=== PATIENT | male | born 1990 | race Caucasian/White ===

== ENCOUNTER 2020-07-28 22:55 | Emergency (ER) | payer OTHER ==
--- NOTE | 2020-07-29 00:23 | ER ---
REASON FOR EMERGENCY ROOM VISIT: Shortness of breath. HISTORY: This 29-year-old man comes in this evening after awakening with shortness of breath and what he describes as an air hunger. He felt somewhat anxious after experiencing this and set up for a while and felt some chest tightness. He states that he has been seen in the past by physician who did his DOT physical examination, at which time sleep apnea study was recommended. He was told that his BMI is greater than 40, which was the main reason for this concern, although he does report today he has had similar episodes of awakening with air hunger. The last time 3 weeks ago he woke up abruptly with some similar episode. The baby at home was crying, so he got out of bed to attend to the child and at the same time had to urgently go to the bathroom to urinate. He stood up rather quickly and he states that he felt anxious and became dizzy and had a brief syncopal episode at that time. He has had a couple smaller episodes like this prior to that, the last one being about 3 weeks ago. 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 He does not have any dyspnea on exertion. He has not had any cough, fever, or chills. He denies any sore throat or other respiratory complaints. He has not had any GI complaints at all. He denies any recent exposure to anyone with known COVID. He states that when he experiences this he gets some upper chest tightness that seems to settle after a few minutes. He states he does have quite a lot of what he calls anxiety and that he does have family history of a lot of males in the family having issues with anxiety. PAST FAMILY HISTORY: Other than that noted above, his father is alive and well, has no cardiac history. His paternal grandfather and maternal grandfather neither have no history of cardiac disease as well. His mother is 58 years old and has hypertension, but no history of cardiac disease. He does have a sister who is 26 and healthy. PAST MEDICAL HISTORY: Other than that noted above, negative. MEDICATIONS: None. ALLERGIES: NONE TO MEDICATIONS. REVIEW OF SYSTEMS: Pertinent positives and negatives as listed in the HPI. PHYSICAL EXAMINATION: GENERAL: Reveals an obese young man, who does not appear to be in any acute distress at this time. VITAL SIGNS: See EMR. He is afebrile. His O2 sats are 98% on room air. His heart rate was 84, blood pressure 176/113, O2 sats 100% on room air. HEENT: No conjunctivitis or scleral icterus. Oropharynx is normal. NECK: Supple. No JVD. Trachea is midline. No thyromegaly. CHEST: Clear to auscultation with good air exchange bilaterally and no wheezes, rhonchi, or rales. CARDIAC: Regular rate without murmur. ABDOMEN: Obese, soft, and nontender. No hepatosplenomegaly is noted. EXTREMITIES: Normal pulses. No edema. NEUROLOGIC: Cranial nerves 2 through 12 are intact. He moves all 4 extremities well. He has no sensory deficits to crude touch. IMPRESSION: 1. History consistent with possible sleep apnea. 2. Anxiety. 3. Elevated blood pressure, possibly related to #2. PLAN: I relayed to the patient that I think the recommendation for a sleep apnea study makes a lot of sense, especially with his BMI being greater than 40. We also talked about his anxiety and he elaborated some on his family history of anxiety. He thinks that has a great deal to do with it. We did get a 12-lead EKG which showed normal sinus rhythm and no acute changes. His Troponin 1 was not elevated. He will be given 1 mg of Ativan to take just prior to leaving the emergency department. He only lives 3 or 4 miles away from here, so it will not have had time to affect him assuming he drives straight home. I reassured him he seemed to be okay with this recommendation. All questions were answered and stated he will definitely take the recommendation for sleep apnea study seriously. We will arrange for this to be done. ALFRED /[id number] MATTEO
[2020-07-29] MEDS: LORazepam 1 MG Tab PO ONE (00:35)
[2020-07-29] MEDS ORDERED: LORazepam 1 MG Tab ONE (00:37)
== END 2020-07-29 00:38 | disposition home or self-care (01) ==
LOC: LB.ED 22:55
DX: F41.9 Anxiety disorder, unspecified (principal); R03.0 Elevated blood-pressure reading, without diagnosis of hypertension; E66.9 Obesity, unspecified; Z68.41 Body mass index [BMI] 40.0-44.9, adult
CPT/HCPCS: 36415; 84484; 93005; 99285-25; A9270-GY

== ENCOUNTER 2020-10-07 23:11 | Emergency (ER) | payer OTHER ==
[2020-10-07] MEDS ORDERED: Cephalexin 500 MG Cap ONE (23:50)
[2020-10-08] MEDS: Diphtheria,Pertussis(Acell),Tetanus Vaccine 0.5 ML SDV IM ONE (00:20)
--- NOTE | 2020-10-08 00:21 | EDM.PDOC ---
ED HPI GENERAL MEDICAL PROBLEM - General Chief Complaint: Laceration Stated Complaint: FALL LACERATION Time Seen by Provider: 10/08/20 01:00 - History of Present Illness INITIAL COMMENTS - FREE TEXT/NARRATIVE: 29 year old morbidly obese male awoke to feed his twin babies & going to rest room ,tipped his toe & fell & landed on face .He got injury ON left eye brow 4x4 x2 cm ,abrasion on right side of forehead ,abrasion on nose & right check .He said that he passed out for few seconds - He is c/o pain on bridge of nose -sharp ,3/10 ,located on bridge of nose - denies any bleeding form nose denies fever ,N/V ,chest pain, cough ,shortness of breath ,wheezing ,abd pain Onset: Today, Sudden Onset Date: 10/08/20 Onset Time: 10:00 Duration: Hour(s): (1) Quality: Reports: Sharp Severity: Moderate Improves with: Reports: None Worsens with: Reports: None - Related Data Allergies Allergy/AdvReac Type Severity Reaction Status Date / Time No Known Allergies Allergy Verified 07/28/20 23:56 Social & Family History - Tobacco Use Years of Tobacco use: 20 Packs/Tins Daily: 1 ED ROS GENERAL - Review of Systems Review Of Systems: See Below Constitutional: Reports: No Symptoms HEENT: Reports: No Symptoms, Other (lac over left eye brow , 4x4 x2 cm ,abrasiion 4x 4cm on right side of forehead ,abrasion on nose ,on righ tcheek) Endocrine: Reports: No Symptoms GI/Abdominal: Reports: No Symptoms : Reports: No Symptoms Musculoskeletal: Reports: No Symptoms Skin: Reports: No Symptoms Neurological: Reports: No Symptoms (multiple abrasion on forehead ,on right cheek & nose ) ED EXAM, SKIN/RASH Exam: See Below Exam Limited By: No Limitations General Appearance: WD/WN, No Apparent Distress Nose: Other (abrasion on nose ) Throat/Mouth: Normal Inspection Head: Atraumatic, Normocephalic, Other (lac on left eye brow [id number]) Respiratory/Chest: No Respiratory Distress, Lungs Clear, Normal Breath Sounds, No Accessory Muscle Use, Chest Non-Tender Cardiovascular: Normal Peripheral Pulses, Regular Rate, Rhythm, No Edema, No Gallop, No JVD, No Murmur, No Rub GI/Abdominal: Normal Bowel Sounds, Soft, Non-Tender, No Organomegaly, No Distention, No Abnormal Bruit, No Mass, Pelvis Stable Extremities: Normal Inspection Neurological: Alert, Oriented, CN II-XII Intact Location, Skin: Head Course - Vital Signs Text/Narrative:: 29 year old male came with h/o fall vital monitored CT head & CT facial bones ordered . CT head was normal CT facial bone undisplaced fracture of nasal bone - I asked him to apply nasal splint -he declined nasal splint Left eye brow lac was repaired with 5/0 ethylene 6 stitches applied under local anesthetic 2% lidocaine on left eyebrow . 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 Condition at discharge -stable - Orders/Labs/Meds Orders: Active Orders 24 hr Category Date Time Status Head wo Cont [CT] Stat Exams 10/07/20 23:58 Taken Max Facial Sinus wo Cont [CT] Stat Exams 10/08/20 Taken Departure - Departure Time of Disposition: 01:00 Disposition: Home, Self-Care 01 Condition: Good Clinical Impression: Nasal bone fractures Qualifiers: Encounter type: initial encounter Fracture type: closed Qualified Code(s): S02.2XXA - Fracture of nasal bones, initial encounter for closed fracture - Discharge Information *PRESCRIPTION DRUG MONITORING PROGRAM REVIEWED*: No Instructions: Nasal Fracture Referrals: PCP,None [Primary Care Provider] - Forms: ED Department Discharge - Problem List & Annotations (1) Laceration of eye, left SNOMED Code(s): 708609605 Code(s): S05.32XA - OCULAR LAC W/O PROLAPS/LOSS OF INTRAOC TISSUE, L EYE, INIT Status: Acute Priority: Medium Current Visit: Yes Onset Date: ~10/08/20 Qualifiers: Encounter type: initial encounter Qualified Code(s): S05.32XA - Ocular laceration without prolapse or loss of intraocular tissue, left eye, initial encounter (2) Laceration of eyebrow and forehead SNOMED Code(s): 477980932 Code(s): S01.81XA - LACERATION W/O FOREIGN BODY OF OTH PART OF HEAD, INIT ENCNTR; S01.119A - LACERATION W/O FB OF UNSP EYELID AND PERIOCULAR AREA, INIT Status: Acute Current Visit: Yes (3) Laceration of eyebrow and forehead SNOMED Code(s): 885131181 Code(s): S01.81XA - LACERATION W/O FOREIGN BODY OF OTH PART OF HEAD, INIT ENCNTR; S01.119A - LACERATION W/O FB OF UNSP EYELID AND PERIOCULAR AREA, INIT Status: Acute Current Visit: Yes (4) Nasal bone fractures SNOMED Code(s): 211865829 Code(s): S02.2XXA - FRACTURE OF NASAL BONES, INIT ENCNTR FOR CLOSED FRACTURE Status: Acute Priority: Medium Current Visit: Yes Qualifiers: Encounter type: initial encounter Fracture type: closed Qualified Code(s): S02.2XXA - Fracture of nasal bones, initial encounter for closed fracture - My Orders Last 24 Hours: My Active Orders 10/07/20 23:58 Head wo Cont [CT] Stat 10/08/20 Max Facial Sinus wo Cont [CT] Stat - Assessment/Plan Last 24 Hours: My Active Orders 10/07/20 23:58 Head wo Cont [CT] Stat 10/08/20 Max Facial Sinus wo Cont [CT] Stat Plan: Take antibiotic for 5 days come to clinic after 7 days for stitch removal Return to clinic if there vomiting or dizziness
[2020-10-08 05:26] VITALS: BP 150/100; PULSE 62
--- NOTE | 2020-10-08 09:08 | CT ---
Date of Service: 10/07/20 Clinical Data: fell loc UNENHANCED BRAIN CT: Multislice acquisition through the brain without IV contrast was performed. No priors. There is a 9 mm lucency on the right basal ganglia consistent with an old lacunar infarct. No masses or mass effect. No intracranial hemorrhage. No evidence of an acute or subacute infarct. No fractures. IMPRESSION: No acute intracranial abnormalities. [id number] [facility]
--- NOTE | 2020-10-08 09:11 | CT ---
Date of Service: 10/08/20 Clinical Data: FALL FACIAL CT: Multislice axial acquisition was performed. No priors. There are subtle fractures of the nasal bone bilaterally with adjacent soft tissue swelling. No other fractures. The globes and orbital contents appear unremarkable. There is a rounded low-density lesion in the right maxillary sinus consistent with a retention cyst or polyp. The paranasal sinuses are otherwise clear. No air-fluid levels. No other significant findings. [id number] [facility]
== END 2020-10-08 01:10 | disposition home or self-care (01) ==
LOC: LB.ED 23:11
DX: S02.2XXA Fracture of nasal bones, initial encounter for closed fracture (principal); S01.112A Laceration without foreign body of left eyelid and periocular area, initial encounter; E66.01 Morbid (severe) obesity due to excess calories; Z68.41 Body mass index [BMI] 40.0-44.9, adult; Z23 Encounter for immunization; Z72.0 Tobacco use; W01.198A Fall on same level from slipping, tripping and stumbling with subsequent striking against other object, initial encounter; Y92.002 Bathroom of unspecified non-institutional (private) residence as the place of occurrence of the external cause
CPT/HCPCS: 12013; 70450; 70486; 90471; 90715; 99283-25; 99284; A9270-GY